=== PATIENT | female | born 1955 | race Two or more races ===

== ENCOUNTER 2017-08-01 10:21 | Day surgery (SDC) | payer OTHER ==
[~2017-08-01 10:21] MED LIST: ACTONEL150 MG PO; ACTONEL5 MG PO; ANTIDEPRESIVO; PRILOSEC2.5 MG PO; SYNTHROID88 MCG PO; WELLBUTRIN SR150 MG PO; ZANTAC15 MG/ML PO
== END 2017-08-01 14:30 | disposition home or self-care (01) ==
LOC: AMB-ENDOS 10:21
DX: D12.3 Benign neoplasm of transverse colon (principal); D12.2 Benign neoplasm of ascending colon; D12.7 Benign neoplasm of rectosigmoid junction; K64.8 Other hemorrhoids

== ENCOUNTER → 2017-08-07 | Outpatient (CLI) | payer OTHER | END | disposition home or self-care (01) | LOC: PPHC 14:00 → NUTRICION 15:22 | DX: R15.9 Full incontinence of feces (principal); K63.5 Polyp of colon; E03.8 Other specified hypothyroidism; M81.8 Other osteoporosis without current pathological fracture; E66.3 Overweight ==

== ENCOUNTER 2019-08-06 07:15 | Day surgery (SDC) | payer OTHER | END 2019-08-06 12:50 | disposition home or self-care (01) | LOC: AMB-ENDOS 07:15 → ADM 14:15 → AMB-ENDOS 14:15 | DX: D12.3 Benign neoplasm of transverse colon (principal); K64.8 Other hemorrhoids; Z12.11 Encounter for screening for malignant neoplasm of colon ==

== ENCOUNTER 2019-12-23 13:05 | Outpatient (CLI) | payer OTHER | END 2019-12-23 13:15 | disposition home or self-care (01) | LOC: MAMO-SONO 13:05 | PROVIDERS: ATTEND Internal Medicine Cardiovascular Disease | DX: Z12.31 Encounter for screening mammogram for malignant neoplasm of breast (principal); Z87.898 Personal history of other specified conditions; N63.11 Unspecified lump in the right breast, upper outer quadrant ==

== ENCOUNTER 2019-12-30 12:51 | Outpatient (CLI) | payer OTHER | END 2019-12-30 12:53 | disposition home or self-care (01) | LOC: NUCLEAR 12:51 | PROVIDERS: ATTEND Internal Medicine Cardiovascular Disease | DX: M81.0 Age-related osteoporosis without current pathological fracture (principal); E55.9 Vitamin D deficiency, unspecified ==

== ENCOUNTER 2021-03-01 08:00 | Outpatient (CLI) | payer OTHER | END 2021-03-01 08:30 | disposition home or self-care (01) | LOC: PPH VACUNA 08:00 | PROVIDERS: ATTEND Emergency Medicine Pediatric Emergency Medicine | DX: Z23 Encounter for immunization (principal) ==

== ENCOUNTER 2021-03-22 10:54 | Outpatient (CLI) | payer OTHER | END 2021-03-22 11:04 | disposition home or self-care (01) | LOC: MAMO-SONO 10:54 | PROVIDERS: ATTEND Specialist | DX: N60.11 Diffuse cystic mastopathy of right breast (principal); N60.12 Diffuse cystic mastopathy of left breast; Z12.31 Encounter for screening mammogram for malignant neoplasm of breast ==

== ENCOUNTER 2022-05-10 11:16 | Outpatient (CLI) | payer OTHER | END 2022-05-10 11:20 | disposition home or self-care (01) | LOC: MAMO-SONO 11:16 | PROVIDERS: ATTEND Specialist | DX: N60.11 Diffuse cystic mastopathy of right breast (principal); N60.12 Diffuse cystic mastopathy of left breast ==

== ENCOUNTER 2023-06-05 09:52 | Outpatient (CLI) | payer OTHER | END 2023-06-05 09:59 | disposition home or self-care (01) | LOC: MAMO-SONO 09:52 | PROVIDERS: ATTEND Specialist | DX: N60.11 Diffuse cystic mastopathy of right breast (principal); N60.12 Diffuse cystic mastopathy of left breast ==

== ENCOUNTER 2023-07-18 08:37 | Day surgery (SDC) | payer OTHER ==
[2023-07-18] MEDS ORDERED: DIPHENHYDRAMINE HCL 50 MG/ML VIAL 1ML IV ONE (14:15)
[2023-07-18] MEDS ORDERED: MIDAZOLAM HCL 2 MG/2 ML VIAL IV ONE (14:15)
[2023-07-18] MEDS ORDERED: fentaNYL CITRATE 50 MCG/ML AMPUL IV PUSH ONE (14:15)
[2023-07-18] MEDS ORDERED: ONDANSETRON HCL 2 MG/ML VIAL IV ONE (14:15)
== END 2023-07-18 16:10 | disposition home or self-care (01) ==
LOC: AMB-ENDOS 08:37
PROVIDERS: ATTEND Colon & Rectal Surgery
DX: K62.5 Hemorrhage of anus and rectum (principal); K63.3 Ulcer of intestine; K57.30 Diverticulosis of large intestine without perforation or abscess without bleeding

== ENCOUNTER 2024-06-23 12:17 | Outpatient (CLI) | payer OTHER | END 2024-06-23 12:26 | disposition home or self-care (01) | LOC: MAMO-SONO 12:17 | PROVIDERS: ATTEND Internal Medicine Cardiovascular Disease | DX: N60.11 Diffuse cystic mastopathy of right breast (principal); N60.12 Diffuse cystic mastopathy of left breast; Z12.31 Encounter for screening mammogram for malignant neoplasm of breast ==

== ENCOUNTER 2024-07-08 11:06 | Outpatient (CLI) | payer OTHER | END 2024-07-08 11:07 | disposition home or self-care (01) | LOC: NUCLEAR 11:06 | PROVIDERS: ATTEND Internal Medicine Cardiovascular Disease | DX: M81.0 Age-related osteoporosis without current pathological fracture (principal) ==

== ENCOUNTER 2025-04-30 09:57 | Outpatient (CLI) | payer OTHER | END 2025-04-30 09:58 | disposition home or self-care (01) | LOC: NUCLEAR 09:57 | PROVIDERS: ATTEND Physical Medicine & Rehabilitation | DX: I73.9 Peripheral vascular disease, unspecified (principal); I87.2 Venous insufficiency (chronic) (peripheral) ==